=== PATIENT | male | born 1990 | race Caucasian/White ===

== ENCOUNTER 2020-10-25 11:26 | Emergency (ER) | payer OTHER ==
[~2020-10-25] VITALS: Ht 180.3 cm; Wt 94.1 kg
[2020-10-25 11:27] VITALS: BP 142/82
--- NOTE | 2020-10-25 12:00 | REP ---
INDICATION: head injury, LOC. COMPARISON: None. TECHNIQUE: Helical scanning is acquired. 5 mm axial images were reformatted. Coronal MPR images were generated. FINDINGS: Bone window settings demonstrate an intact bony calvarium. There is no evidence of skull fracture or incidental bony calvarial lesion. The visualized paranasal sinuses appear clear. No intraorbital abnormality is seen. On soft tissue window setting images; the lateral, third, and fourth ventricles are normal in size and position. Merritt-white differentiation pattern is normal above and below the tentorium. There are is no evidence of intracranial hemorrhage. No mass, edema, infarction, or midline shift is seen. No extra-axial fluid collection is appreciated. A fairly large cavum septum pellucidum is noted incidentally. This is a normal variant. IMPRESSION: Negative noncontrast head CT. <Electronically signed by Noe York > 10/25/20 [id number]
--- NOTE | 2020-10-25 12:03 | REP ---
INDICATION: head injury, LOC. COMPARISON: None. TECHNIQUE: Helical scanning is acquired and overlapping 2 mm high resolution axial images were generated and reviewed at bone and soft tissue window settings. Coronal and sagittal multiplanar re-formations images are generated. FINDINGS: There is no evidence of cervical spine element fracture. No skull base fracture is seen. Cervical vertebral body heights are preserved. Alignment is normal. Facet joints are normally aligned bilaterally at each cervical level on multiplanar re-formations images. There is no evidence of intraspinal or paraspinal hematoma. No extra vertebral abnormality is seen. IMPRESSION: Negative CT study of the cervical spine without contrast. No fracture seen. <Electronically signed by Noe York > 10/25/20 [id number]
[2020-10-25] MEDS ORDERED: IBUPROFEN 600MG TAB PO ONE (12:30)
== END 2020-10-25 13:37 | disposition home or self-care (01) ==
LOC: M ED 11:26
DX: S06.0X9A Concussion with loss of consciousness of unspecified duration, initial encounter (principal); W18.43XA Slipping, tripping and stumbling without falling due to stepping from one level to another, initial encounter; Y92.9 Unspecified place or not applicable; Y93.9 Activity, unspecified; Y99.9 Unspecified external cause status; Q04.8 Other specified congenital malformations of brain; F17.200 Nicotine dependence, unspecified, uncomplicated; Z88.6 Allergy status to analgesic agent